=== PATIENT | female | born 1940 | race Caucasian/White ===

== ENCOUNTER 2016-07-18 10:26 | Emergency (ER) | payer OTHER ==
[~2016-07-18] VITALS: Ht 162.6 cm; Wt 40.8 kg
[2016-07-18] MEDS ORDERED: LISINOPRIL 5 MG TAB PO ONE (11:15)
[2016-07-18 15:20] VITALS: BP 141/72
== END 2016-07-18 15:32 | disposition home or self-care (01) ==
LOC: ER 10:33
DX: I10 Essential (primary) hypertension (principal); Z88.6 Allergy status to analgesic agent
CPT/HCPCS: 70450; 93005